=== PATIENT | female | born 2000 | race Native Hawaiian/Other Pacific Islander ===

== ENCOUNTER 2021-04-14 13:23 | Emergency (ER) | payer OTHER ==
[~2021-04-14] VITALS: Ht 160 cm; Wt 113.4 kg
[2021-04-14] MEDS ORDERED: NOHOMEMEDICATIONS (13:37)
[2021-04-14 14:29] LABS: URINE BILIRUBIN NEGATIVE (Negative); URINE BLOOD NEGATIVE (Negative); URINE CLARITY CLEAR; URINE COLOR YELLOW; URINE GLUCOSE-RANDOM NEGATIVE (Negative); URINE KETONES NEGATIVE (Negative); URINE LEUKOCYTES-REFLEX NEGATIVE (Negative); URINE NITRITE-REFLEX NEGATIVE (Negative); URINE PROTEIN NEGATIVE (Negative); URINE SPECIFIC GRAVITY 1.025 (1.005-1.030); URINE UROBILINOGEN 0.2 E.U./dl (0.2-1.0)
[2021-04-14] MEDS ORDERED: FLEXERIL PO (15:09)
[2021-04-14 16:42] VITALS: BP 138/77
== END 2021-04-14 16:43 | disposition home or self-care (01) ==
LOC: M.ERS 13:23
PROVIDERS: Family Medicine
DX: R31.9 Hematuria, unspecified (principal); M54.6 Pain in thoracic spine